=== PATIENT | male | born 1990 | race African-American/Black ===

== ENCOUNTER 2023-11-15 15:01 | Emergency (ER) | payer OTHER ==
[~2023-11-15] VITALS: Ht 188 cm; Wt 78.0 kg
[2023-11-15 15:28] VITALS: BP 138/87; TEMP 98.8
[2023-11-15] MEDS ORDERED: KETO10TA2 PO (15:45)
[2023-11-15] MEDS ORDERED: CLIN300C12 PO (15:45)
[2023-11-15] MEDS ORDERED: TDAP [DIPH/PERTUSSIS/TET] 0.5 ML VIAL IM ONE (15:51)
[2023-11-15 15:53] VITALS: O2SAT 100
[2023-11-15] MEDS: TDAP [DIPH/PERTUSSIS/TET] 0.5 ML VIAL IM ONE (15:58)
== END 2023-11-15 15:54 | disposition home or self-care (01) ==
LOC: ER 15:23
DX: S70.361A Insect bite (nonvenomous), right thigh, initial encounter (principal); L03.115 Cellulitis of right lower limb; Z60.2 Problems related to living alone; W57.XXXA Bitten or stung by nonvenomous insect and other nonvenomous arthropods, initial encounter; Y93.89 Activity, other specified; Y92.89 Other specified places as the place of occurrence of the external cause; Y99.8 Other external cause status
CPT/HCPCS: 90715